=== PATIENT | female | born 1980 | race Caucasian/White ===

== ENCOUNTER 2021-01-23 07:18 | Inpatient (IN) | payer OTHER ==
[2021-01-23 07:23] VITALS: BMI 20.7
[2021-01-23] MEDS ORDERED: SODIUM CHLORIDE 1,000 ML IV STA ×2 (07:42→09:16)
[2021-01-23 08:06] LABS: BASO % 0.2 % (0-2.0); EOS % 0.3 % (0-4.5); HEMATOCRIT 36.6 % (32.4-45.2); HEMOGLOBIN 12.9 GM/dL (10.7-15.3); LYMPH % 3.2 % (8-40); MCH 31.4 pg (25.7-33.7); MCHC 35.2 g/dl (32.0-36.0); MEAN CELL VOLUME 89.1 fl (80-96); MONO % 0.3 % (3.8-10.2); PLATELET COUNT 232 K/MM3 (134-434); RDW 12.4 % (11.6-15.6); WHITE BLOOD COUNT 5.1 K/mm3 (4.0-10.0)
[2021-01-23 08:13] LABS: POTASSIUM 3.3 mmol/L (3.5-5.1)
[2021-01-23 08:14] LABS: CALCIUM 8.9 mg/dL (8.5-10.1)
[2021-01-23 08:15] LABS: ALBUMIN 3.5 g/dl (3.4-5.0); BLOOD UREA NITROGEN 15.1 mg/dL (7-18); MAGNESIUM 1.6 mg/dL (1.8-2.4)
[2021-01-23 08:19] LABS: BILIRUBIN,TOTAL 1.1 mg/dL (0.2-1); TOT PROT 6.2 g/dl (6.4-8.2)
[2021-01-23] MEDS ORDERED: MAGNESIUM SULF 50% (8.12 MEQ/2 ML-1 GM VIAL) ONE (08:58)
[2021-01-23] MEDS ORDERED: MAGNESIUM 1GM/D5W - 1 GM/100 ML IVPB IVPB ONE (08:59)
[2021-01-23 09:05] LABS: N-TERMINAL BNP 91.7 pg/ml (5-125)
[2021-01-23] MEDS ORDERED: KCL 10 MEQ IVPB 10 MEQ/100 ML INFUS.BAG IVPB ONE ×3 (09:15→11:10)
[2021-01-23] MEDS: KCL 10 MEQ IVPB 10 MEQ/100 ML INFUS.BAG IVPB SCH ×3 (09:45→12:00)
[2021-01-23 09:48] LABS: ANISOCYTOSIS 0; MACROCYTOSIS 0; PLATELET ESTIMATE NORMAL
[2021-01-23] MEDS ORDERED: ACETAMINOPHEN 1000 MG/100 ML VIAL (NON FORMULARY) IVPB ONE (11:03)
[2021-01-23] MEDS ORDERED: ACETAMINOPHEN INJECTION 100 ML IVPB ONE (11:10)
[2021-01-23 11:40] LABS: URINE BENZODIAZEPINES NEGATIVE ng/ml (CUTOFF=200)
[2021-01-23 11:41] LABS: METHADONE, UR NEGATIVE ng/ml (CUTOFF=300); OPIATES, URI NEGATIVE ng/ml (CUTOFF=300); PHENCYCLIDINE,URINE NEGATIVE ng/ml (CUTOFF=25); URINE BARBITURATES NEGATIVE ng/ml (CUTOFF=200)
[2021-01-23 11:54] LABS: URINE AMPHETAMINES NEGATIVE ng/ml (CUTOFF=500)
[2021-01-23 11:56] LABS: COCAINE, UR POSITIVE ng/ml (CUTOFF=300)
[2021-01-23 11:58] LABS: URINE APPEARANCE CLEAR; URINE BILIRUBIN NEGATIVE (NEGATIVE); URINE COLOR YELLOW; URINE GLUCOSE (UA) NEGATIVE (NEGATIVE); URINE KETONE NEGATIVE (NEGATIVE)
[2021-01-23 11:59] LABS: EPI CELLS 2.6 /uL (0-25.1); HYALINE CASTS 0.12 /uL (0-3.1); PH,URINE 5.5 (5.0-8.0); URINE BACTERIA 46.8 /uL (0-1359); URINE LEUK ESTERASE TRACE (NEGATIVE); URINE NITRITE NEGATIVE (NEGATIVE); URINE PROTEIN TRACE (NEGATIVE); URINE RBC 2.5 /uL (0-23.9); URINE UROBILINOGEN 0.2 mg/dL (0.2-1.0); URINE WBC 3.2 /uL (0-25.8)
[2021-01-23] MEDS ORDERED: LORazepam 2 MG/ML SDV VIAL IVPUSH ONE (12:30)
[2021-01-23] MEDS ORDERED: LORazepam 2 MG/ML SDV VIAL ONE (13:03)
[2021-01-23] MEDS ORDERED: HEPARIN NA (PORCINE) 5,000 UNITS/ML 1ML VIAL SQ SCH (22:00)
[2021-01-24] MEDS ORDERED: LIDOCAINE 5% TOPICAL PATCH TP ONE (06:26)
[2021-01-24 09:05] LABS: BASO % 0.6 % (0-2.0); EOS % 2.8 % (0-4.5); HEMATOCRIT 37.3 % (32.4-45.2); HEMOGLOBIN 12.3 GM/dL (10.7-15.3); LYMPH % 34.2 % (8-40); MCH 29.8 pg (25.7-33.7); MCHC 33.1 g/dl (32.0-36.0); MEAN CELL VOLUME 89.9 fl (80-96); MEAN PLT VOLUME 9.5 fl (7.5-11.1); MONO % 8.8 % (3.8-10.2); NEUT % 53.6 % (42.8-82.8); PLATELET COUNT 305 K/MM3 (134-434); RBC 4.14 M/mm3 (3.60-5.2); RDW 16.3 % (11.6-15.6); WHITE BLOOD COUNT 7.7 K/mm3 (4.0-10.0)
[2021-01-24 09:19] LABS: POTASSIUM 4.2 mmol/L (3.5-5.1)
[2021-01-24 09:28] LABS: BILIRUBIN,TOTAL 0.2 mg/dL (0.2-1); PHOSPHOROUS 3.6 mg/dL (2.5-4.9)
[2021-01-24 09:30] LABS: CALCIUM 9.7 mg/dL (8.5-10.1); TOT PROT 6.8 g/dl (6.4-8.2)
[2021-01-24 09:31] LABS: BLOOD UREA NITROGEN 13.2 mg/dL (7-18); CREATININE 0.7 mg/dL (0.55-1.3); MAGNESIUM 2.2 mg/dL (1.8-2.4)
[2021-01-24] MEDS ORDERED: PIPERACILLIN/TAZOB 3.375 GM 3.375 GM in DEXTROSE 5%-WATER - 50 ML IVPB SCH (10:00)
[2021-01-24] MEDS ORDERED: PIPERACILLIN/TAZOBACTAM 3.375 GM VIAL IVPB ONE ×2 (10:28→16:59)
[2021-01-24] MEDS ORDERED: DEXTROSE 5%-WATER - 50 ML IVPB ONE ×2 (10:28→17:00)
[2021-01-24] MEDS: HEPARIN NA (PORCINE) 5,000 UNITS/ML 1ML VIAL SQ SCH ×2 (10:38→21:26)
[2021-01-24] MEDS: PANTOPRAZOLE 20 MG TABLET PO SCH (10:38)
[2021-01-24] MEDS: PIPERACILLIN/TAZOB 3.375 GM 3.375 GM in DEXTROSE 5%-WATER - 50 ML IVPB SCH ×2 (10:38→17:12)
[2021-01-24 13:13] LABS: POTASSIUM 4.2 mmol/L (3.5-5.1)
[2021-01-24 13:15] LABS: ALBUMIN 3.3 g/dl (3.4-5.0); BLOOD UREA NITROGEN 9.7 mg/dL (7-18)
[2021-01-24 13:18] LABS: CREATININE 0.7 mg/dL (0.55-1.3)
[2021-01-24 13:20] LABS: BILIRUBIN,TOTAL 0.3 mg/dL (0.2-1); TOT PROT 6.4 g/dl (6.4-8.2)
[2021-01-24 13:23] LABS: CALCIUM 8.2 mg/dL (8.5-10.1)
[2021-01-24] MEDS: NICOTINE 21 MG/24 HOURS TOPICAL PATCH TD SCH (18:04)
[2021-01-24] MEDS ORDERED: LIDOCAINE PATCH REMOVAL MC SCH (22:00)
[2021-01-25] MEDS ORDERED: PIPERACILLIN/TAZOBACTAM 3.375 GM VIAL IVPB ONE (01:30)
[2021-01-25] MEDS ORDERED: DEXTROSE 5%-WATER - 50 ML IVPB ONE (01:30)
[2021-01-25] MEDS: PIPERACILLIN/TAZOB 3.375 GM 3.375 GM in DEXTROSE 5%-WATER - 50 ML IVPB SCH (01:39)
[2021-01-25 06:11] VITALS: BP 112/64; PULSE 78; TEMP 98.2
[2021-01-25] MEDS: PANTOPRAZOLE 20 MG TABLET PO SCH (09:00)
[2021-01-25] MEDS: NICOTINE 21 MG/24 HOURS TOPICAL PATCH TD SCH (09:00)
[2021-01-25] MEDS: HEPARIN NA (PORCINE) 5,000 UNITS/ML 1ML VIAL SQ SCH (09:00)
== END 2021-01-25 11:35 | disposition left against medical advice (07) | DRG 770 ==
LOC: JER 07:18 → JERBED 12:45 → J4S 14:56
PROVIDERS: ADMIT Family Medicine; ATTEND Family Medicine
PROC: HZ2ZZZZ Detoxification Services for Substance Abuse Treatment (ICD-10-PCS; principal; 2021-01-23)
DX: F14.929 Cocaine use, unspecified with intoxication, unspecified (principal); R00.0 Tachycardia, unspecified; E87.6 Hypokalemia; E83.42 Hypomagnesemia; E03.9 Hypothyroidism, unspecified; R10.13 Epigastric pain; R16.0 Hepatomegaly, not elsewhere classified; F17.210 Nicotine dependence, cigarettes, uncomplicated; K75.9 Inflammatory liver disease, unspecified; K81.9 Cholecystitis, unspecified; R94.31 Abnormal electrocardiogram [ECG] [EKG]; R79.89 Other specified abnormal findings of blood chemistry; F19.10 Other psychoactive substance abuse, uncomplicated; F41.8 Other specified anxiety disorders
CPT/HCPCS: 36415; 71045-TC-FY; 71275-TC; 74177-TC; 74181-TC; 76705-TC; 80053; 80307; 81003; 82150; 82550; 83690; 83735; 83880; 84100; 84439; 84443; 84484; 84703; 85025; 85379; 87086; 93005; 93010; 93970-TC; 99285-25; C9803; J0131; J1644; Q9967; U0003